=== PATIENT | female | born 1975 | race Caucasian/White ===

== ENCOUNTER 2017-09-01 13:25 | Emergency (ER) | payer BC, MEDICAID ==
[~2017-09-01] VITALS: Ht 172.7 cm; Wt 90.9 kg
[~2017-09-01 13:25] MED LIST: PHEN-824 PO; PHEN-873 PO; SUCR1ORA2 PO
[2017-09-01] MEDS ORDERED: ondansetron/PF 4mg/2ml inj IV ONE (14:15)
[2017-09-01] MEDS ORDERED: ketorolac trometh. 30mg/ml inj. IV ONE ×2 (14:15→20:10)
[2017-09-01] MEDS ORDERED: normal saline 1000ml 1,000 ML IV ONE ×2 (14:15→17:00)
[2017-09-01 15:47] LABS: URINE HCG NEGATIVE (NEG)
[2017-09-01 15:49] LABS: COLOR,URINE Yellow (Yellow); GLUCOSE, URINE Negative (Neg); KETONES,URINE Negative (Neg); LEUKOCYTE ESTERASE ,URINE Small (Neg); NITRITES, URINE Negative (Neg); OCCULT BLOOD,URINE Negative (Neg); PROTEIN,URINE Negative (Neg); UROBILINOGEN,URINE 0.2 E.U/dL (0.2-1.0)
[2017-09-01 15:50] LABS: CLARITY,URINE SLIGHTLY CLOUDY (Clear); UA COLLECTION TYPE NON-SPECIFIED
[2017-09-01 15:54] LABS: BACTERIA,URINE 3+ /HPF (Neg); MUCUS STRANDS NONE SEEN /LPF (Neg); RBC,URINE 0-2 /HPF (0-2); SQUAMOUS EPITHELIAL CELL,UR MODERATE /LPF (FEW)
[2017-09-01] MEDS ORDERED: acetaminophen 325mg tablet PO ONE (16:30)
[2017-09-01] MEDS ORDERED: CefTRIAXone 2gm/D5W 50ml ADVTG 50 ML IV ONE (17:00)
[2017-09-01 17:46] LABS: BASOPHILS % (AUTO) 0.2 % (0-1); EOSINOPHILS # (AUTO) 0.1 X10'3 (0-0.9); EOSINOPHILS % (AUTO) 0.5 % (0-6); HEMATOCRIT 39.7 % (35.0-45.0); LYMPHOCYTES # (AUTO) 0.7 X10'3 (1.1-4.8); LYMPHOCYTES % (AUTO) 5.1 % (21-51); MEAN CORPUSCULAR HEMOGLOBIN 27.1 PG (27.0-31.0); MEAN CORPUSCULAR HGB CONC 32.8 % (33.0-36.5); MEAN CORPUSCULAR VOLUME 82.8 FL (78-98); MEAN PLATELET VOLUME 7.5 FL (7.4-10.4); MONOCYTES # (AUTO) 0.3 X10'3 (0-0.9); NEUTROPHILS # (AUTO) 12.3 X10'3 (1.8-7.7); NEUTROPHILS % (AUTO) 92.2 % (42-75); PLATELET COUNT 340 X10'3 (140-440); RED BLOOD COUNT 4.79 X10'6 (4.20-5.60); WHITE BLOOD COUNT 13.3 X10'3 (4.5-11.0)
[2017-09-01 18:11] LABS: ALANINE AMINOTRANSFERASE 26 U/L (12-78); ALBUMIN 3.5 G/DL (3.4-5.0); ALBUMIN/GLOBULIN RATIO 0.8 (1.1-1.5); ALKALINE PHOSPHATASE 73 IU/L (46-116); ANION GAP 8 (8-16); ASPARTATE AMINO TRANSFERASE 20 U/L (10-37); BILIRUBIN,TOTAL 0.5 MG/DL (0.1-1.0); BLOOD UREA NITROGEN 9 MG/DL (7-18); BUN/CREATININE RATIO 6.9 (6.6-38.0); CALCIUM 8.7 MG/DL (8.5-10.1); CHLORIDE 103 MMOL/L (99-107); GLUCOSE 106 MG/DL (70-104); SODIUM 138 MMOL/L (135-145); TOTAL PROTEIN 7.9 G/DL (6.4-8.2); eGFR 45 ML/MIN
[2017-09-01] MEDS ORDERED: LORazepam 2 mg/ml vial IV ONE ×2 (18:25→19:15)
[2017-09-01] MEDS ORDERED: proCHLORperazine 10 MG/2 ml inj IV ONE (19:55)
[2017-09-01] MEDS ORDERED: fentaNYL/PF 50MCG/1 ML 2ML syringe IV ONE (19:55)
[2017-09-01 20:49] LABS: GLUCOSE,CSF 62 MG/DL (40-75); TOTAL PROTEIN,CSF 36.7 MG/DL (15-45)
[2017-09-01 21:17] LABS: APPEARANCE,CSF CLEAR; CSF SUPERNATANT COLOR COLORLESS; CSF VOLUME 10 ML
[2017-09-01 21:18] LABS: CSF RBC 1 /CU MM (0); TUBE# COUNTED 1
[2017-09-01 21:23] LABS: APPEARANCE,CSF CLEAR; CSF SUPERNATANT COLOR COLORLESS; CSF VOLUME 10 ML; CSF WBC CT 2 /CU MM (0-5); TUBE# COUNTED 1
[2017-09-01 21:24] LABS: CSF RBC 0 /CU MM (0); CSF WBC CT 0 /CU MM (0-5)
[2017-09-01] MEDS ORDERED: IBUP-1986 PO (22:06)
[2017-09-01 22:19] VITALS: BP 99/49
== END 2017-09-01 22:32 | disposition home or self-care (01) ==
LOC: ER 13:25
DX: R51 Headache (principal); J06.9 Acute upper respiratory infection, unspecified; I10 Essential (primary) hypertension; G89.29 Other chronic pain; Z90.49 Acquired absence of other specified parts of digestive tract; Z98.890 Other specified postprocedural states; Z98.84 Bariatric surgery status; Z88.5 Allergy status to narcotic agent; Z88.8 Allergy status to other drugs, medicaments and biological substances
CPT/HCPCS: 36415; 62270; 71045; 80053; 81001; 81025; 82945; 83605; 84145; 84157; 85025; 87015; 87070; 87077; 87088; 87186; 87210; 87502; 87503; 89051; 96361; 96365; 96375; 96376; 99285; J0696; J0780; J1885; J2060; J2405; J7030

== ENCOUNTER 2018-12-19 16:50 | Emergency (ER) | payer MEDICAID ==
[~2018-12-19] VITALS: Ht 170.2 cm; Wt 70.5 kg
[~2018-12-19 16:50] MED LIST changes: +IBUP-1986 PO; +PHEN-786 PO; -PHEN-873 PO
[2018-12-19 17:47] VITALS: BP 133/73
[2018-12-19] MEDS ORDERED: morphine 10mg/ml inj. IV ONE (18:55)
[2018-12-19] MEDS ORDERED: morphine 5 MG/ML injection IM STA (19:19)
--- NOTE | 2018-12-19 19:20 | NUR ---
TALKED TO DR MOYA ABOUT IV MORPHINE WITH NO PT IV, ORDER CHANGED TO IM MORPHINE
[2018-12-19] MEDS ORDERED: morphine 10mg/ml inj. IM ONE (19:35)
[2018-12-19] MEDS ORDERED: OXYC-145 PO (20:27)
== END 2018-12-19 20:39 | disposition home or self-care (01) ==
LOC: ER 16:51
DX: M54.42 Lumbago with sciatica, left side (principal); I10 Essential (primary) hypertension; G89.29 Other chronic pain; Z90.49 Acquired absence of other specified parts of digestive tract; Z98.890 Other specified postprocedural states; Z88.8 Allergy status to other drugs, medicaments and biological substances; Z79.899 Other long term (current) drug therapy
CPT/HCPCS: 96372; 99283; J2270